=== PATIENT | female | born 1955 | race Caucasian/White ===

== ENCOUNTER → 2024-06-03 | Outpatient (CLI) | payer MEDICARE, BC, SELFPAY ==
[2024-06-03 11:40] LABS: Basophils % (Auto) 0 % (0-2.5); Eosinophils # (Auto) 0.1 Thou/mm3 (0.0-0.5); Eosinophils % (Auto) 1 % (0-10); Hematocrit 47.3 % (36.0-46.0); Immature Granulocytes % (Auto) 0 % (0-0); Immature Granulocytes Auto 0.02 Thou/mm3 (0.00-0.00); Lymphocytes # (Auto) 2.7 Thou/mm3 (1.0-4.8); Lymphocytes % (Auto) 30 % (10-50); Mean Corpuscular HGB Conc 31.7 g/dl (31.0-37.0); Mean Corpuscular Hemoglobin 28.2 pg (25.0-35.0); Mean Corpuscular Volume 89 fL (80-100); Monocytes # (Auto) 0.6 Thou/mm3 (0.0-0.8); Monocytes % (Auto) 7 % (0-12); Neutrophils # (Auto) 5.6 Thou/mm3 (1.8-7.7); Neutrophils % (Auto) 62 % (37-80); Nucleated Red Blood Cell % 0 /100 WBC (0); Platelet Count 240 Thou/mm3 (140-440); RDW Standard Deviation 49.9 fL (36.4-46.3); Red Blood Count 5.32 Miln/mm3 (4.00-5.20)
[2024-06-03 11:58] LABS: Alanine Aminotransferase 13 U/L (10-49); Albumin, Serum 4.5 gm/dL (3.4-4.8); Alkaline Phosphatase 94 U/L (46-116); Anion Gap 9 (7-16); Aspartate Amino Transferase 16 U/L (0-34); BUN/Creatinine Ratio 18 Ratio (12-20); Bilirubin,Total 0.7 mg/dL (0.3-1.2); Blood Urea Nitrogen 9 mg/dL (9-23); Calcium 9.7 mg/dL (8.3-10.6); Calcium (Corrected) 9.7 mg/dL (8.5-10.1); Carbon Dioxide 26.3 mMol/L (20.0-31.0); Cardiac Risk Estimate 3.5 RATIO (3.7-5.6); Chloride 103 mMol/L (98-107); Cholesterol 177 mg/dL (132-200); Creatinine (Component) 0.5 mg/dL (0.6-1.3); Globulin 2.3 gm/dL (2.3-3.5); Glucose 75 mg/dL (74-106); HDL Cholesterol 50 mg/dL (40-60); LDL Cholesterol,Calculated 106 mg/dL (0-130); Osmolality,Calculated 273 (275-295); Potassium 4.3 mMol/L (3.4-5.1); Sodium 138 mMol/L (136-145); Thyroid Stimulating Hormone 1.66 uIU/mL (0.55-4.78); Total Protein 6.8 gm/dL (5.7-8.2); Triglycerides 103 mg/dL (30-150); Uric Acid 5.1 mg/dL (3.1-7.8); eGFR > 60 See Note
[2024-06-03 12:00] LABS: Vitamin B12 682 pg/mL (211-911); Vitamin D 25 Hydroxy Total 69.2 ng/mL (7.3-40.2)
== END | disposition home or self-care (01) ==
LOC: COPL 10:56 → SLDO 10:57
PROVIDERS: PCP Internal Medicine; Referring Provider Internal Medicine Cardiovascular Disease; Visit Provider Internal Medicine
DX: Z00.00 Encounter for general adult medical examination without abnormal findings (principal); G35 Multiple sclerosis; I49.8 Other specified cardiac arrhythmias; G47.00 Insomnia, unspecified; N39.41 Urge incontinence
CPT/HCPCS: 36415; 80053; 80061; 82306; 82607; 84443; 84550; 85025

== ENCOUNTER 2024-06-19 04:28 | Emergency (ER) | payer MEDICARE, BC, SELFPAY ==
[2024-06-19] VITALS (11 sets, daily range): BP systolic 112–138; BP diastolic 64–80; PULSE 72–110; RESP 13–20; TEMP 36.7–39.8; O2SAT 94–97
--- NOTE | 2024-06-19 04:44 | EKG_ITS ---
[facility] Test Date: 2024-06-19 Pat Name: HUBER QUESADA Department: Room: - Gender: Female Director Of Oncology: : 1955 Requested By: Phill Davis Order Number: [id number] Reading MD: Phill Davis Measurements Intervals [place] Rate: 107 P: 39 NV: 162 QRS: 20 QRSD: 81 T: 7 QT: 323 QTc: 432 Interpretive Statements SINUS TACHYCARDIA LOW QRS VOLTAGE IN PRECORDIAL LEADS [QRS DEFLECTION < 1.0 mV IN CHEST LEADS] NONSPECIFIC ST & T-WAVE ABNORMALITY ABNORMAL RHYTHM ECG Compared to ECG 11/10/2023 21:21:21 T-wave abnormality now present /store/S0/[id number].pdf
--- NOTE | 2024-06-19 04:45 | XR_ITS ---
Examination: AP chest single view Technique one AP portable upright chest single view Exam date and time: June 19, 2024 0449 hours Comparison September 01, 2023 INDICATIONS: Shortness of breath sepsis alert today. FINDINGS: Suspicious for early right base pneumonia Subsegmental atelectasis in the right perihilar region Normal heart size Prominent osteopenia IMPRESSION: Suspicious for early right base pneumonia
--- NOTE | 2024-06-19 04:47 | PD.EDFEVER ---
ED Fever RME/HPI General Chief Complaint: Urogenital-Female Stated Complaint: CATHETER ISSUES Time Seen by Provider: 06/19/24 04:44 Arrival date/time: 06/19/24 04:28 RME / HPI RME / HPI Narrative: This section includes all my notes and documentations, including HPI, PE, and ED course. Phill Gusman MD HPI: 69-year-old female with MS and quadriplegia presents with hematuria and fever. Her caretakers replaced her suprapubic catheter yesterday. It was very traumatic according to the . Patient reports no cough or congestion. No chest pain or shortness of breath. No abdominal pain. No other complaints. ROS: All negative except as documented in HPI. Physical Exam: General: Alert and oriented. Fever noted. Appearance of malaise noted. Eyes: Conjunctivae and lids clear. EOMI. PERRL. ENT: No nasal congestion. Neck: Supple. Heart: RRR. Lungs: No respiratory distress. Moderately decreased air movement. No significant rhonchi, wheezing, rales. Chest: No tenderness. Abdomen: Soft and nontender. Normal bowel sounds. No distension. No rebound or guarding. Suprapubic catheter noted with dark/bloody urine. Back: No CVA tenderness. Legs: No clubbing, cyanosis, edema. Skin: Warm and dry. Neuro: Alert and oriented X 3. Cranial Nerves II-XII grossly intact. No new peripheral motor deficits. I ordered IV fluid and Rocephin and Toradol and Tylenol and Solu-Medrol and diagnostic tests. At 6 PM on 06/19/2024, the care of the patient was transferred to the next shift ED physician. Phill Gusman MD Related Data Home Medications ?Medication ?Instructions ?Recorded ?Confirmed baclofen 20 mg tablet 20 mg PO TID 05/31/22 11/10/23 sacubitril 49 mg-valsartan 51 mg 1 tab PO BID 08/31/23 11/10/23 tablet (Entresto) metoprolol succinate 25 mg 50 mg PO DAILY 11/10/23 11/10/23 tablet,extended release 24 hr Allergies Allergy/AdvReac Type Severity Reaction Status Date / Time Iodinated Contrast Media Allergy Intermediate Rash Verified 08/31/23 13:14 Course Quality Measures none Orders Category Date Time Status Bedside COVID-19 Antigen Test NOW Care 06/19/24 04:47 Active Bedside Influenza A&B Antigen Test NOW Care 06/19/24 04:47 Active EKG (ED ONLY) *Do not use* NOW Care 06/19/24 04:44 Completed Saline [Insert IV] NOW Care 06/19/24 04:[address] chest abdomen pelvis wo Stat Exams 06/19/24 04:51 Ordered EKG (ED Only) Stat Exams 06/19/24 04:44 Draft XR chest 1V portable Stat Exams 06/19/24 04:45 Taken ABG [Arterial Blood Gas] Stat Lab 06/19/24 04:52 Ordered BNP [B-Type Natriuretic Peptide] Stat Lab 06/19/24 04:52 Ordered Blood Culture (Lab) Stat Lab 06/19/24 04:52 Ordered CBC Stat Lab 06/19/24 04:52 Ordered CMP [Comprehensive Metabolic Panel] Stat Lab 06/19/24 04:52 Ordered CRP [C-Reactive Protein] Stat Lab 06/19/24 04:52 Ordered ESR [Sed Rate (ESR)] Stat Lab 06/19/24 04:52 Ordered Lactate (Lactic Acid) Stat Lab 06/19/24 04:52 Ordered Magnesium Stat Lab 06/19/24 04:52 Ordered [place] Screen Stat Lab 06/19/24 04:52 Ordered Procalcitonin Stat Lab 06/19/24 04:52 Ordered RSV [Respiratory Syncytial Virus Ag] Stat Lab 06/19/24 04:52 Ordered Strep A Rapid Stat Lab 06/19/24 04:52 Ordered TSH [Thyroid Stimulating Hormone] Stat Lab 06/19/24 04:52 Ordered Troponin I Stat Lab 06/19/24 04:52 Ordered UA, C/S IF [Urinalysis, C/S if Indicated] Stat Lab 06/19/24 04:52 Ordered Acetaminophen Ivpb [Ofirmev Inj] Med 06/19/24 04:48 Discontinued 1,000 mg in 100 ml IV NOW Ketorolac Inj [Toradol Inj] Med 06/19/24 04:48 Discontinued 15 mg IVP X1 ONE MethylPREDNISolone.* [SoluMEDROL Inj] Med 06/19/24 04:48 Discontinued 125 mg IVP X1 ONE Sodium Chloride 0.9% 1000 ml [Ns] 1,000 ml Med 06/19/24 04:48 Active IV 999 mls/hr Sodium Chloride 0.9% 1000 ml [Ns] 1,000 ml Med 06/19/24 04:50 Active IV 999 mls/hr Sodium Chloride 0.9% 1000 ml [Ns] 1,000 ml Med 06/19/24 04:50 Active IV 999 mls/hr cefTRIAXone [Rocephin] 1,000 mg Med 06/19/24 04:48 Discontinued Sodium Chloride 0.9% (P) [Ns 0.9% (P)] 50 ml IV X1 Vital Signs Vital signs: Vital Signs Temperature 103.6 F H 06/19/24 04:41 Pulse Rate 107 H 06/19/24 04:41 Respiratory Rate 16 06/19/24 04:41 Blood Pressure 138/71 H 06/19/24 04:41 Pulse Oximetry (%) 95 06/19/24 04:41 Oxygen Delivery Method Room Air 06/19/24 04:41 Fever Patient data External records reviewed:: [facility] previous records and EMS form Clinical information provided by:: patient, EMS and spouse Social determinants that could affect healthcare access:: none Patient has the following chronic illnesses:: MS and quadriplegia How is presenting disease/condition affected by chronic disease/condition?: exacerbated by Evaluation data The following diagnostics were reviewed and interpreted by me:: EKG tracing(s) (My interpretation of the EKG is: Sinus tachycardia (107 bpm) with nonspecific ST-T changes. Phill Gusman MD) Lab and/or radiology exams considered but not ordered:: None Interpretation Summary: Diagnostic test results pending Medications / Prescriptions Medications or Prescriptions considered but not ordered:: None Medication administrations:: Medication Administration History Sodium Chloride (Ns) 1,000 mls @ 999 mls/hr IV .Q1H1M ONE Stop: 06/19/24 05:48 Sodium Chloride (Ns) 1,000 mls @ 999 mls/hr IV .Q1H1M ONE Stop: 06/19/24 05:50 Sodium Chloride (Ns) 1,000 mls @ 999 mls/hr IV .Q1H1M ONE Stop: 06/19/24 05:50 Discontinued Medications Acetaminophen (Ofirmev Inj) 1,000 mg in 100 mls @ 250 mls/hr IV NOW ONE Stop: 06/19/24 05:11 Ceftriaxone Sodium 1,000 mg/ (Sodium Chloride) 50 mls @ 100 mls/hr IV X1 ONE Stop: 06/19/24 05:17 Ketorolac Tromethamine (Ketorolac Inj 30 Mg/Ml Vial) 15 mg IVP X1 ONE Stop: 06/19/24 04:49 Methylprednisolone Sodium Succinate (Methylprednisolone Sod Succ 62.5 Mg/Ml 2ml Vial) 125 mg IVP X1 ONE Stop: 06/19/24 04:49 IV fluid and Tylenol and Toradol and Rocephin and Solu-Medrol Consultations Consultation(s) initiated? (list below): No Diagnosis Fever Differential Diagnosis: cellulitis, fever of unknown origin, gastroenteritis, community acquired pneumonia, pyelonephritis, viral infection, sepsis and influenza Most likely diagnosis given after review of the tests above:: Diagnostic test results pending Admission Indicated Admission indicated?: not indicated Explain why admission is indicated or not indicated:: Diagnostic test results pending Admission Request Was there a request for admission?: No Disposition Plan Disposition Plan: other (specify) (Care of the patient was transferred to the next shift ED physician) Discharge Plan Prescriptions/Referrals Prescriptions/Med Rec: No Action baclofen 20 mg tablet 20 mg PO TID Entresto 49-51 mg Tablet 1 tab PO BID metoprolol succinate 25 mg tablet extended release 24 hr 50 mg PO DAILY Problem List Clinical Impression: Fever Patient/Caregiver Discharge Instructions Print Language: Israeli
--- NOTE | 2024-06-19 04:51 | XR_ITS ---
Examination: CT chest, without intravenous contrast. CT abdomen, without intravenous contrast. CT pelvis, without intravenous contrast. 2-D sagittal and coronal reconstructions. 3-D reconstructions. Date and time of exam:June 19, 2024 0531 hrs. Comparison September 04, 2023 Indications: Shortness of breath fever chest abdominal pain today CTDI vol (mgy) 20.5 DLP (MGycm)1412 Technique: Multiple CT images, 3.0 mm slice thickness, obtained chest, abdomen, pelvis, with the high-resolution 64 slice scanner.. Sagittal and coronal 2-D reconstructions are obtained. 3-D reconstructions Low dose protocols were performed. One or more of the following dose reduction techniques were used; automated exposure control, adjustment of the mA and/or KV according to patient size, use of iterative reconstruction technique. Findings: No thoracic aortic aneurysmal dilatation Pulmonary artery segments are not enlarged No paratracheal tracheobronchial or bronchopulmonary adenopathy Calcified granuloma right upper lobe Atelectasis in both lower lobes No pneumonic consolidation 15 mm solid appearing lesion posterior right lobe liver image 123 Absent gallbladder Common bile duct 9 mm No pancreatic mass Mild left hydronephrosis Dilated left ureter with subtle hyperdensity and fat stranding in the distal ureter, axial image 253 Abundant air and stool in the colon Urinary bladder wall thickening with suprapubic catheter noted Prominent osteopenia with chronic osteoporotic compressions L5, L4, L2 Moderate narrowing hip joints Impression: 15 mm solid appearing lesion posterior right lobe the liver, recommend MRI liver follow-up pre and postcontrast to exclude hepatic metastasis Dilated left ureter with subtle hyperdensity and fat stranding involving the distal ureter, differential would include hematoma, inflammation distal ureter, distal ureter mass or scar formation, the appearance should be clinically correlated Significant thickening of the urinary bladder wall, the bladder is contracted around a suprapubic catheter
[2024-06-19] MEDS: SODIUM CHLORIDE 0.9% 1000 ML 1,000 ML 999 ML IV ×3 (05:10→05:11)
[2024-06-19] MEDS: MethylPREDNISolone SOD SUCC 62.5 MG/ML 2ML VIAL 125 MG IVP (05:11)
[2024-06-19] MEDS: cefTRIAXone 1,000 MG in SODIUM CHLORIDE 0.9% (P) 50 ML 100 MG IV (05:11)
[2024-06-19] MEDS: KETOROLAC INJ 30 MG/ML VIAL 15 MG IVP (05:12)
[2024-06-19] MEDS: ACETAMINOPHEN IVPB 1,000 MG/100 ML VIAL 250 MG IV (05:16)
[2024-06-19 05:39] LABS: Lactate (Lactic Acid) 2.7 mMol/L (0.4-2.0)
[2024-06-19 05:42] LABS: Basophils % (Auto) 0 % (0-2.5); Eosinophils % (Auto) 0 % (0-10); Hematocrit 45.8 % (36.0-46.0); Immature Granulocytes % (Auto) 1 % (0-0); Immature Granulocytes Auto 0.08 Thou/mm3 (0.00-0.00); Lymphocytes # (Auto) 0.4 Thou/mm3 (1.0-4.8); Lymphocytes % (Auto) 3 % (10-50); Mean Corpuscular HGB Conc 32.8 g/dl (31.0-37.0); Mean Corpuscular Hemoglobin 28.2 pg (25.0-35.0); Mean Corpuscular Volume 86 fL (80-100); Monocytes # (Auto) 0.3 Thou/mm3 (0.0-0.8); Monocytes % (Auto) 2 % (0-12); Neutrophils # (Auto) 15.1 Thou/mm3 (1.8-7.7); Neutrophils % (Auto) 95 % (37-80); Nucleated Red Blood Cell % 0 /100 WBC (0); Platelet Count 233 Thou/mm3 (140-440); RDW Standard Deviation 46.7 fL (36.4-46.3); Red Blood Count 5.32 Miln/mm3 (4.00-5.20); White Blood Count 15.8 Thou/mm3 (3.6-11.0)
[2024-06-19 05:45] LABS: Collection Type, Urine Clean Catch
[2024-06-19 05:49] LABS: Base Excess -1 (-3-3); HCO3 22 mEq/L (20-26); Inspired Oxygen, FIO2 21 %; O2 Saturation 95 % (91-98); PCO2 33 mmHg (32.0-48.0); PO2 66 mmHg (83-108); pH, Arterial 7.44 (7.35-7.45)
[2024-06-19 05:59] LABS: Sed Rate (ESR) 30 mm/hr (0-30)
[2024-06-19 06:05] LABS: Allen Test Performed/OK; Puncture Site Right Radial
[2024-06-19 06:11] LABS: Alanine Aminotransferase 12 U/L (10-49); Albumin, Serum 4.5 gm/dL (3.4-4.8); Albumin/Globulin Ratio 1.7 (1.2-2.2); Alkaline Phosphatase 99 U/L (46-116); Anion Gap 11 (7-16); Aspartate Amino Transferase < 10 U/L (0-34); BUN/Creatinine Ratio 23 Ratio (12-20); Bilirubin,Total 0.9 mg/dL (0.3-1.2); Blood Urea Nitrogen 14 mg/dL (9-23); C-Reactive Protein 4.5 mg/dL (0.0-0.9); Calcium 9.7 mg/dL (8.3-10.6); Calcium (Corrected) 9.7 mg/dL (8.5-10.1); Carbon Dioxide 21.1 mMol/L (20.0-31.0); Chloride 103 mMol/L (98-107); Creatinine (Component) 0.6 mg/dL (0.6-1.3); Globulin 2.6 gm/dL (2.3-3.5); Glucose 102 mg/dL (74-106); Magnesium 1.6 mg/dL (1.6-2.6); Osmolality,Calculated 270 (275-295); Potassium 3.7 mMol/L (3.4-5.1); Procalcitonin 1.82 ng/ml (0.0-0.49); Sodium 135 mMol/L (136-145); Thyroid Stimulating Hormone 0.99 uIU/mL (0.55-4.78); Total Protein 7.1 gm/dL (5.7-8.2); Troponin I < 0.020 ng/mL (0.0-0.045); eGFR > 60 See Note
[2024-06-19 06:13] LABS: Bilirubin,Urine Negative (Negative); Blood,Urine 3+ (Negative); Clarity,Urine Turbid (Clear/Hazy); Color,Urine Lt-Brown (Lt Yel-Yel); Glucose, Urine Negative (Negative); Ketones,Urine 1+ (Negative); Leukocyte Esterase,Urine Positive (Negative); Nitrite,Urine Positive (Negative); Protein,Urine 1+ (Neg - Trace); RBC,Urine 284 /hpf (0-3); Squamous Epithelial Cell,Urine < 1 /hpf (0-5); Urobilinogen,Urine Negative mg/dL (0.0-1.0); WBC,Urine 134 /hpf (0-5)
[2024-06-19 06:16] LABS: Culture Indicated,Urine Yes
[2024-06-19 06:21] LABS: B-Type Natriuretic Peptide 39 pg/mL (0-100)
--- NOTE | 2024-06-19 06:29 | PRELIM_ITS ---
CT scan of the chest, abdomen and pelvis without intravenous contrast (axial sections with sagittal a nd coronal reformats) June 19, 2024 0531 hours Clinical History: SOB FEVER ABD PAIN Comparison: N o prior study is available for comparison. Findings:There is bibasilar atelectasis and traction bronc hiectasis. There is right upper lobe calcified granuloma. The right diaphragmatic copula is elevated. There is no pleural effusion or pneumothorax. No evidence of mediastinal mass or lymphadenopathy. The re is no pericardial effusion.The gallbladder is surgically absent. Mild to moderate intra and extrah epatic biliary ductal dilatation, of unclear significance in the postcholecystectomy state. A 1.5 cm ill-defined hypodense lesion is seen in the right lobe of the liver.There is left distal ureteric ant erior wall and intraluminal hyperdensity suggestive of hematoma with surrounding fat stranding and ai r loculi. There is proximal left moderate hydroureteronephrosis. No localized collectionsThe pancreas , spleen, right kidney and adrenals appears unremarkable.No evidence of bowel obstruction. The appen mk is within normal limits (images 221/328).There is rectal fecal distention with mild rectal wall t hickening which may represent fecal impaction with mild proctitis.There is no mesenteric or retroperi toneal adenopathy. The aorta demonstrates atheromatous calcification without evidence of aneurysm.A s uprapubic urinary bladder catheter is seen. A focus of air is seen within the urinary bladder, likely due to catheterization. The urinary bladder is moderately distended and appears thick walled. Urinar y bladder diverticulum is seen arising from the right lateral wall. The uterus is surgically absent. There is no free fluid in the peritoneal cavity.Diffuse osteopenia is seen. There are chronic compre ssion deformities of the L2, L4 and L5 vertebrae. Moderate degenerative changes are identified in the spine.Impression:1. No evidence of bowel obstruction or fluid collection. 2. Left distal ureteric an terior wall and intraluminal hyperdensity with surrounding fat stranding , air loculi and proximal moderate hydroureteronephrosis. Findings suggestive of ureteric injury with wall hematoma. Recommend clinical correlation and further evaluation with contrast study if clinically indicated.3. Other find ings as described above. Discussion Details: Results verbally communicated to : Dr. Fabian at 06:25 AM 06/19/2024 Report Electronically Signed By: Asia Dupont 06/19/2024 6:28:49 AM [EST]
[2024-06-19 06:34] LABS: Respiratory Syncytial Virus Ag Negative (Negative); Strep A Rapid Negative (Negative)
--- NOTE | 2024-06-19 07:01 | EDNOTE_ITS ---
Emergency Room Addendum Addendum Narrative: 1800: Care assumed from Dr. Gusman, the previous shift emergency physician. Past medical, surgical, social and family history reviewed. Vitals and home medications reviewed. I will assume the care of the patient at this time, pending chest/abdomen/pelvis CT and final disposition. Please refer to the emergency department record for history and examination from initial visit.? 69 year old female, who is non-mobile, bedbound with a recent super PA catheter placed by Dr. Wood at [facility] parentheses November 2023) who had her routine fully catheter change yesterday around 1 PM which required several attempts. First two attempts were painful Where one attempt even had the catheter come out of her urethra. Third attempt patient describes was smoother, less painful, however, they noted persistent, dark brown, bloody urine, persistent through the course of the night, therefore comes to the emergency department. She denies any pain since the first two attempts a catheter placement. She?s had no complications with this catheter since. She does describe a history of issues with the left side of her bladder, including a possible diverticular abscess that needed to be drained or even a ?fistula?. Family is not clear as to what was caused of these issues on her left side of her bladder. At that time she did have a sided abdominal. Physical exam On my exam she?s pleasant, well appearing, super pubic catheter appears, clean, dry and intact, she has brown tea colored urine in her catheter bag, she has no abdominal tenderness, no CVA tenderness. 1550: Discussed case with Dr. Tyson, Urology at [facility], we reviewed the case, CT findings, current urine output and does not feel there any further intervention is needed today. She does not warrant a cystoscopy. Given she has history of frequent urinary tract infections in the recent urinary manipulation, recommends discharge with antibiotics and can follow up closely with her primary care doctor. 1600: Patient remains clinically stable throughout the emergency department visit. Re-assessment at the time of disposition demonstrates that the patient is in no acute distress. We reviewed all the results, analysis, and treatment plans. Patient is amenable to discharge. Strict return precautions were outlined. Patient was discharged in stable condition. Diagnoses: fever, UTI, mechanical complication of suprapubic catheter RADIOLOGY Procedure(s): CT chest abdomen pelvis wo Accession Number(s): [id number] cc: Phill Gusman MD; Yogesh Mcnamara MD~ Examination: CT chest, without intravenous contrast. CT abdomen, without intravenous contrast. CT pelvis, without intravenous contrast. 2-D sagittal and coronal reconstructions. 3-D reconstructions. Date and time of exam:June 19, 2024 0531 hrs. Comparison September 04, 2023 Indications: Shortness of breath fever chest abdominal pain today CTDI vol (mgy) 20.5 DLP (MGycm)1412 Technique: Multiple CT images, 3.0 mm slice thickness, obtained chest, abdomen, pelvis, with the high-resolution 64 slice scanner.. Sagittal and coronal 2-D reconstructions are obtained. 3-D reconstructions Low dose protocols were performed. One or more of the following dose reduction techniques were used; automated exposure control, adjustment of the mA and/or KV according to patient size, use of iterative reconstruction technique. Findings: No thoracic aortic aneurysmal dilatation Pulmonary artery segments are not enlarged No paratracheal tracheobronchial or bronchopulmonary adenopathy Calcified granuloma right upper lobe Atelectasis in both lower lobes No pneumonic consolidation 15 mm solid appearing lesion posterior right lobe liver image 123 Absent gallbladder Common bile duct 9 mm No pancreatic mass Mild left hydronephrosis Dilated left ureter with subtle hyperdensity and fat stranding in the distal ureter, axial image 253 Abundant air and stool in the colon Urinary bladder wall thickening with suprapubic catheter noted Prominent osteopenia with chronic osteoporotic compressions L5, L4, L2 Moderate narrowing hip joints Impression: 15 mm solid appearing lesion posterior right lobe the liver, recommend MRI liver follow-up pre and postcontrast to exclude hepatic metastasis Dilated left ureter with subtle hyperdensity and fat stranding involving the distal ureter, differential would include hematoma, inflammation distal ureter, distal ureter mass or scar formation, the appearance should be clinically correlated Significant thickening of the urinary bladder wall, the bladder is contracted around a suprapubic catheter Dictated By: Yogesh Mcnamara MD
--- NOTE | 2024-06-19 07:21 | PC.NURSE ---
[facility] FAXED FOR POSSIBLE TRANSFER FOR UROLOGY
[2024-06-19] MEDS: LEVOFLOXACIN/D5W 500 MG IVPB 500 MG/100 ML BAG 100 MG IV (08:11)
[2024-06-19 08:33] LABS: Reflex Lactate? Y
[2024-06-19 09:13] LABS: Lactic Acid, 3 HR 1.1 mMol/L (0.4-2.0)
--- NOTE | 2024-06-19 10:18 | PC.CM ---
Addendum entered by Marti May RN 06/19/24 16:18: Dr. Fabian called me and he states he spoke to the urologist Dr. Christy from [facility]. Dr. Rowland let Dr. Fabian know he did not feel patient needed to be transferred for higher level of care. Transfer has been canceled. I updated Rosalinda charge nurse. Addendum entered by Marti May RN 06/19/24 15:09: I spoke to Caridad at [facility] to follow up on transfer request. she states she has left multiple messages for the urology doctor and she is waiting for him to call her back. She states she knew he was busy today with multiple surgeries. I updated Dr. Fabian Addendum entered by Marti May RN 06/19/24 12:20: I received a call from Caridad transfer nurse at [facility]. She states she wanted to let me know she has not forgot about us, she has reached out to her doctor and he was not got back to her. She states he has been busy with surgeries. I updated Dr. Fabian. Original Note: [id number] Fabian and he states he got a call from [facility] and they asked his the EMTALA questions. He stated the transfe nurse at [facility] told him they were reaching out to their urologist workers compensation adjuster. [id number] I spoke [facility] and they stated are going to reach out to [facility] urology doctor. I was told by Dr. Fabian that patient has been seen and followed by a urology doctor at [facility].
[2024-06-19 18:55] LABS: Mono Screen Positive (Negative)
== END 2024-06-19 18:16 | disposition home or self-care (01) ==
PROVIDERS: Emergency Medicine; Emergency Provider Emergency Medicine; PCP Internal Medicine
DX: R50.9 Fever, unspecified (principal); G82.50 Quadriplegia, unspecified; N39.0 Urinary tract infection, site not specified; T85.9XXA Unspecified complication of internal prosthetic device, implant and graft, initial encounter
CPT/HCPCS: 36415; 36600; 71045; 71250; 74176; 80053; 81001; 82803; 83605; 83735; 83880; 84145; 84443; 84484; 85025; 85652; 86140; 86308; 87040; 87077; 87086; 87186; 87400; 87634; 87651; 87811; 93005; 96361; 96365; 96367; 96375; 99284; J0131; J0696; J1885; J1956; J2919; J7030; J7050

== ENCOUNTER → 2024-10-19 | Outpatient (CLI) | payer MEDICARE, SELFPAY ==
[2024-10-19 13:06] LABS: Basophils % (Auto) 1 % (0-2.5); Eosinophils # (Auto) 0.1 Thou/mm3 (0.0-0.5); Eosinophils % (Auto) 1 % (0-10); Hematocrit 44.6 % (36.0-46.0); Hemoglobin 14.5 g/dL (12.0-16.0); Immature Granulocytes % (Auto) 0 % (0-0); Immature Granulocytes Auto 0.01 Thou/mm3 (0.00-0.00); Lymphocytes # (Auto) 3.1 Thou/mm3 (1.0-4.8); Lymphocytes % (Auto) 39 % (10-50); Mean Corpuscular HGB Conc 32.5 g/dl (31.0-37.0); Mean Corpuscular Hemoglobin 28.7 pg (25.0-35.0); Mean Corpuscular Volume 88 fL (80-100); Monocytes # (Auto) 0.7 Thou/mm3 (0.0-0.8); Monocytes % (Auto) 9 % (0-12); Neutrophils # (Auto) 3.9 Thou/mm3 (1.8-7.7); Neutrophils % (Auto) 51 % (37-80); Nucleated Red Blood Cell % 0 /100 WBC (0); Platelet Count 259 Thou/mm3 (140-440); RDW Standard Deviation 48.3 fL (36.4-46.3); Red Blood Count 5.06 Miln/mm3 (4.00-5.20); White Blood Count 7.8 Thou/mm3 (3.6-11.0)
[2024-10-19 13:24] LABS: Albumin, Serum 3.9 gm/dL (3.4-4.8); Anion Gap 7 (7-16); BUN/Creatinine Ratio 20 Ratio (12-20); Blood Urea Nitrogen 10 mg/dL (9-23); Calcium 9.1 mg/dL (8.3-10.6); Calcium (Corrected) 9.2 mg/dL (8.5-10.1); Carbon Dioxide 29.3 mMol/L (20.0-31.0); Chloride 104 mMol/L (98-107); Creatinine (Component) 0.5 mg/dL (0.6-1.3); Glucose 104 mg/dL (74-106); Osmolality,Calculated 278 (275-295); Phosphorous 3.5 mg/dL (2.4-5.1); Potassium 4.6 mMol/L (3.4-5.1); Sodium 140 mMol/L (136-145); eGFR > 60 See Note
== END | disposition home or self-care (01) ==
LOC: SLDO 12:29
PROVIDERS: PCP Internal Medicine; Referring Provider Internal Medicine; Visit Provider Internal Medicine
DX: I10 Essential (primary) hypertension (principal)
CPT/HCPCS: 36415; 80069; 85025

== ENCOUNTER → 2024-11-02 | Outpatient (CLI) | payer MEDICARE, SELFPAY ==
[2024-11-02 17:44] LABS: Basophils % (Auto) 0 % (0-2.5); Eosinophils # (Auto) 0.1 Thou/mm3 (0.0-0.5); Eosinophils % (Auto) 1 % (0-10); Hematocrit 42.6 % (36.0-46.0); Immature Granulocytes % (Auto) 0 % (0-0); Immature Granulocytes Auto 0.02 Thou/mm3 (0.00-0.00); Lymphocytes # (Auto) 2.7 Thou/mm3 (1.0-4.8); Lymphocytes % (Auto) 25 % (10-50); Mean Corpuscular HGB Conc 32.9 g/dl (31.0-37.0); Mean Corpuscular Hemoglobin 28.2 pg (25.0-35.0); Mean Corpuscular Volume 86 fL (80-100); Monocytes # (Auto) 0.7 Thou/mm3 (0.0-0.8); Monocytes % (Auto) 7 % (0-12); Neutrophils % (Auto) 67 % (37-80); Nucleated Red Blood Cell % 0 /100 WBC (0); Platelet Count 356 Thou/mm3 (140-440); RDW Standard Deviation 46.8 fL (36.4-46.3); Red Blood Count 4.96 Miln/mm3 (4.00-5.20); White Blood Count 10.5 Thou/mm3 (3.6-11.0)
[2024-11-02 17:54] LABS: Alanine Aminotransferase 9 U/L (10-49); Albumin, Serum 3.9 gm/dL (3.4-4.8); Albumin/Globulin Ratio 1.8 (1.2-2.2); Alkaline Phosphatase 97 U/L (46-116); Anion Gap 11 (7-16); Aspartate Amino Transferase 17 U/L (0-34); BUN/Creatinine Ratio 24 Ratio (12-20); Bilirubin,Total 0.6 mg/dL (0.3-1.2); Blood Urea Nitrogen 12 mg/dL (9-23); Calcium 8.7 mg/dL (8.3-10.6); Calcium (Corrected) 8.8 mg/dL (8.5-10.1); Carbon Dioxide 27.7 mMol/L (20.0-31.0); Chloride 100 mMol/L (98-107); Creatinine (Component) 0.5 mg/dL (0.6-1.3); Globulin 2.2 gm/dL (2.3-3.5); Glucose 103 mg/dL (74-106); Magnesium 1.9 mg/dL (1.6-2.6); Osmolality,Calculated 277 (275-295); Potassium 4.9 mMol/L (3.4-5.1); Sodium 139 mMol/L (136-145); Total Protein 6.1 gm/dL (5.7-8.2); eGFR > 60 See Note
== END | disposition home or self-care (01) ==
LOC: SLDO 16:23
PROVIDERS: Referring Provider Internal Medicine Cardiovascular Disease; Visit Provider Internal Medicine Cardiovascular Disease
DX: G35 Multiple sclerosis (principal)
CPT/HCPCS: 36415; 80053; 83735; 85025

== ENCOUNTER → 2024-12-21 | Outpatient (CLI) | payer MEDICARE, SELFPAY ==
[2024-12-21 13:27] LABS: Basophils # (Auto) 0.1 Thou/mm3 (0.0-0.2); Basophils % (Auto) 1 % (0-2.5); Eosinophils # (Auto) 0.1 Thou/mm3 (0.0-0.5); Eosinophils % (Auto) 1 % (0-10); Hematocrit 45.6 % (36.0-46.0); Hemoglobin 14.9 g/dL (12.0-16.0); Immature Granulocytes % (Auto) 0 % (0-0); Immature Granulocytes Auto 0.03 Thou/mm3 (0.00-0.00); Lymphocytes % (Auto) 34 % (10-50); Mean Corpuscular HGB Conc 32.7 g/dl (31.0-37.0); Mean Corpuscular Hemoglobin 29.4 pg (25.0-35.0); Mean Corpuscular Volume 90 fL (80-100); Monocytes # (Auto) 0.8 Thou/mm3 (0.0-0.8); Monocytes % (Auto) 9 % (0-12); Neutrophils % (Auto) 56 % (37-80); Nucleated Red Blood Cell % 0 /100 WBC (0); Platelet Count 311 Thou/mm3 (140-440); RDW Standard Deviation 48.5 fL (36.4-46.3); Red Blood Count 5.07 Miln/mm3 (4.00-5.20); White Blood Count 8.8 Thou/mm3 (3.6-11.0)
== END | disposition home or self-care (01) ==
LOC: SLDO 12:13
PROVIDERS: Referring Provider Internal Medicine Cardiovascular Disease; Visit Provider Internal Medicine Cardiovascular Disease
DX: I50.22 Chronic systolic (congestive) heart failure (principal); E87.6 Hypokalemia; E83.42 Hypomagnesemia
CPT/HCPCS: 36415; 80053; 83735; 85025

== ENCOUNTER → 2025-01-22 | Outpatient (CLI) | payer MEDICARE, SELFPAY ==
[2025-01-22 11:53] LABS: Collection Type, Urine Clean Catch
[2025-01-22 12:47] LABS: Bacteria,Urine Rare; Bilirubin,Urine Negative (Negative); Blood,Urine 1+ (Negative); Color,Urine Lt-Yellow (Lt Yel-Yel); Glucose, Urine Negative (Negative); Ketones,Urine Negative (Negative); Leukocyte Esterase,Urine Positive (Negative); Nitrite,Urine Positive (Negative); PH,Urine 6.0 (5.0-7.0); Protein,Urine Trace (Neg - Trace); RBC,Urine 10 /hpf (0-3); Specific Gravity,Urine 1.009 (1.001-1.035); Squamous Epithelial Cell,Urine < 1 /hpf (0-5); Urobilinogen,Urine Negative mg/dL (0.0-1.0); WBC,Urine 508 /hpf (0-5)
[2025-01-22 12:53] LABS: Clarity,Urine Hazy (Clear/Hazy); Culture Indicated,Urine Yes
== END | disposition home or self-care (01) ==
LOC: SLDO 11:36
PROVIDERS: PCP Internal Medicine; Referring Provider Internal Medicine; Visit Provider Internal Medicine
DX: N20.0 Calculus of kidney (principal); N39.0 Urinary tract infection, site not specified
CPT/HCPCS: 81001; 87086

== ENCOUNTER → 2025-02-18 | Outpatient (CLI) | payer MEDICARE, SELFPAY ==
[2025-02-18 16:17] LABS: Basophils # (Auto) 0.0 Thou/mm3 (0.0-0.2); Basophils % (Auto) 0 % (0-2.5); Eosinophils # (Auto) 0.1 Thou/mm3 (0.0-0.5); Eosinophils % (Auto) 1 % (0-10); Hematocrit 45.5 % (36.0-46.0); Hemoglobin 14.5 g/dL (12.0-16.0); Immature Granulocytes Auto 0.02 Thou/mm3 (0.00-0.00); Lymphocytes # (Auto) 3.5 Thou/mm3 (1.0-4.8); Lymphocytes % (Auto) 38 % (10-50); Mean Corpuscular HGB Conc 31.9 g/dl (31.0-37.0); Mean Corpuscular Hemoglobin 27.6 pg (25.0-35.0); Mean Corpuscular Volume 87 fL (80-100); Monocytes # (Auto) 0.8 Thou/mm3 (0.0-0.8); Monocytes % (Auto) 9 % (0-12); Neutrophils # (Auto) 4.7 Thou/mm3 (1.8-7.7); Neutrophils % (Auto) 51 % (37-80); Nucleated Red Blood Cell # 0.00 Thou/mm3 (0.00-0.00); Nucleated Red Blood Cell % 0 /100 WBC (0); Platelet Count 258 Thou/mm3 (140-440); RDW Standard Deviation 48.4 fL (36.4-46.3); Red Blood Count 5.25 Miln/mm3 (4.00-5.20); White Blood Count 9.2 Thou/mm3 (3.6-11.0)
[2025-02-18 16:25] LABS: Alanine Aminotransferase 13 U/L (10-49); Albumin, Serum 3.9 gm/dL (3.4-4.8); Albumin/Globulin Ratio 1.9 (1.2-2.2); Alkaline Phosphatase 108 U/L (46-116); Anion Gap 11 (7-16); Aspartate Amino Transferase 15 U/L (0-34); BUN/Creatinine Ratio 20 Ratio (12-20); Bilirubin,Total 0.4 mg/dL (0.3-1.2); Blood Urea Nitrogen 8 mg/dL (9-23); Calcium 9.6 mg/dL (8.3-10.6); Calcium (Corrected) 9.7 mg/dL (8.5-10.1); Carbon Dioxide 25.6 mMol/L (20.0-31.0); Chloride 105 mMol/L (98-107); Creatinine (Component) 0.4 mg/dL (0.6-1.3); Globulin 2.1 gm/dL (2.3-3.5); Glucose 92 mg/dL (74-106); Magnesium 1.8 mg/dL (1.6-2.6); Osmolality,Calculated 281 (275-295); Potassium 4.0 mMol/L (3.4-5.1); Sodium 142 mMol/L (136-145); Total Protein 6.0 gm/dL (5.7-8.2); eGFR > 60 See Note
== END | disposition home or self-care (01) ==
PROVIDERS: Referring Provider Internal Medicine Cardiovascular Disease; Visit Provider Internal Medicine Cardiovascular Disease
DX: N39.0 Urinary tract infection, site not specified (principal)
CPT/HCPCS: 36415; 80053; 83735; 85025

== ENCOUNTER → 2025-04-20 | Outpatient (CLI) | payer MEDICARE, SELFPAY ==
[2025-04-20 16:33] LABS: Basophils # (Auto) 0.0 Thou/mm3 (0.0-0.2); Basophils % (Auto) 0 % (0-2.5); Eosinophils # (Auto) 0.1 Thou/mm3 (0.0-0.5); Eosinophils % (Auto) 1 % (0-10); Hematocrit 46.6 % (36.0-46.0); Hemoglobin 14.9 g/dL (12.0-16.0); Immature Granulocytes Auto 0.02 Thou/mm3 (0.00-0.00); Lymphocytes # (Auto) 3.2 Thou/mm3 (1.0-4.8); Lymphocytes % (Auto) 31 % (10-50); Mean Corpuscular HGB Conc 32.0 g/dl (31.0-37.0); Mean Corpuscular Hemoglobin 28.3 pg (25.0-35.0); Mean Corpuscular Volume 88 fL (80-100); Monocytes # (Auto) 0.7 Thou/mm3 (0.0-0.8); Monocytes % (Auto) 7 % (0-12); Neutrophils # (Auto) 6.1 Thou/mm3 (1.8-7.7); Neutrophils % (Auto) 60 % (37-80); Nucleated Red Blood Cell # 0.00 Thou/mm3 (0.00-0.00); Nucleated Red Blood Cell % 0 /100 WBC (0); Platelet Count 286 Thou/mm3 (140-440); RDW Standard Deviation 50.6 fL (36.4-46.3); Red Blood Count 5.27 Miln/mm3 (4.00-5.20); White Blood Count 10.1 Thou/mm3 (3.6-11.0)
[2025-04-20 16:44] LABS: Alanine Aminotransferase 10 U/L (10-49); Albumin, Serum 4.4 gm/dL (3.4-4.8); Albumin/Globulin Ratio 2.4 (1.2-2.2); Alkaline Phosphatase 92 U/L (46-116); Anion Gap 11 (7-16); Aspartate Amino Transferase 17 U/L (0-34); BUN/Creatinine Ratio 33 Ratio (12-20); Bilirubin,Total 0.6 mg/dL (0.3-1.2); Blood Urea Nitrogen 13 mg/dL (9-23); Calcium 9.3 mg/dL (8.3-10.6); Calcium (Corrected) 9.3 mg/dL (8.5-10.1); Carbon Dioxide 25.6 mMol/L (20.0-31.0); Chloride 104 mMol/L (98-107); Creatinine (Component) 0.4 mg/dL (0.6-1.3); Globulin 1.8 gm/dL (2.3-3.5); Glucose 87 mg/dL (74-106); Magnesium 1.9 mg/dL (1.6-2.6); Osmolality,Calculated 280 (275-295); Potassium 4.6 mMol/L (3.4-5.1); Sodium 141 mMol/L (136-145); Total Protein 6.2 gm/dL (5.7-8.2); eGFR > 60 See Note
== END | disposition home or self-care (01) ==
LOC: SLDO 14:35
PROVIDERS: Referring Provider Internal Medicine Cardiovascular Disease; Visit Provider Internal Medicine Cardiovascular Disease
DX: N39.0 Urinary tract infection, site not specified (principal)
CPT/HCPCS: 36415; 80053; 83735; 85025

== ENCOUNTER → 2025-06-16 | Outpatient (CLI) | payer MEDICARE, SELFPAY ==
[2025-06-16 16:19] LABS: Basophils # (Auto) 0.0 Thou/mm3 (0.0-0.2); Basophils % (Auto) 0 % (0-2.5); Eosinophils # (Auto) 0.1 Thou/mm3 (0.0-0.5); Eosinophils % (Auto) 0 % (0-10); Hematocrit 45.6 % (36.0-46.0); Hemoglobin 14.5 g/dL (12.0-16.0); Immature Granulocytes Auto 0.03 Thou/mm3 (0.00-0.00); Lymphocytes # (Auto) 3.3 Thou/mm3 (1.0-4.8); Lymphocytes % (Auto) 22 % (10-50); Mean Corpuscular HGB Conc 31.8 g/dl (31.0-37.0); Mean Corpuscular Hemoglobin 27.6 pg (25.0-35.0); Mean Corpuscular Volume 87 fL (80-100); Monocytes # (Auto) 1.0 Thou/mm3 (0.0-0.8); Monocytes % (Auto) 7 % (0-12); Neutrophils # (Auto) 10.2 Thou/mm3 (1.8-7.7); Neutrophils % (Auto) 70 % (37-80); Nucleated Red Blood Cell # 0.00 Thou/mm3 (0.00-0.00); Nucleated Red Blood Cell % 0 /100 WBC (0); Platelet Count 279 Thou/mm3 (140-440); RDW Standard Deviation 48.9 fL (36.4-46.3); Red Blood Count 5.25 Miln/mm3 (4.00-5.20); White Blood Count 14.5 Thou/mm3 (3.6-11.0)
[2025-06-16 16:36] LABS: Alanine Aminotransferase 11 U/L (10-49); Albumin, Serum 4.1 gm/dL (3.4-4.8); Albumin/Globulin Ratio 1.8 (1.2-2.2); Alkaline Phosphatase 102 U/L (46-116); Anion Gap 17 (7-16); Aspartate Amino Transferase 19 U/L (0-34); BUN/Creatinine Ratio 27 Ratio (12-20); Bilirubin,Total 0.3 mg/dL (0.3-1.2); Blood Urea Nitrogen 16 mg/dL (9-23); Calcium 8.9 mg/dL (8.3-10.6); Calcium (Corrected) 8.9 mg/dL (8.5-10.1); Carbon Dioxide 20.0 mMol/L (20.0-31.0); Chloride 101 mMol/L (98-107); Creatinine (Component) 0.6 mg/dL (0.6-1.3); Globulin 2.3 gm/dL (2.3-3.5); Glucose 64 mg/dL (74-106); Magnesium 1.6 mg/dL (1.6-2.6); Osmolality,Calculated 274 (275-295); Potassium 4.6 mMol/L (3.4-5.1); Sodium 138 mMol/L (136-145); Total Protein 6.4 gm/dL (5.7-8.2); eGFR > 60 See Note
== END | disposition home or self-care (01) ==
LOC: SLDO 15:51
PROVIDERS: PCP Hospitalist; Referring Provider Hospitalist; Visit Provider Hospitalist
DX: N39.0 Urinary tract infection, site not specified (principal)
CPT/HCPCS: 36415; 80053; 83735; 85025